=== PATIENT | female | born 1995 | race African-American/Black ===

== ENCOUNTER 2019-03-08 16:30 | Emergency (ER) | payer OTHER ==
[2019-03-08 17:12] LABS: #Eosinphils 0.1 thou/uL (0.0-0.7); #Lymphocytes 2.1 thou/uL (1.20-3.40); #Monocytes 0.8 thou/uL (0.11-0.59); #Neutrophils 7.9 thou/uL (1.40-6.50); %Basophils 0.4 % (0.0-1.0); %Eosinophils 0.7 % (0.0-10.0); %Lymphocytes 19.6 % (21.0-51.0); %Neutrophils 72.3 % (42.0-75.0); Hemoglobin 11.3 g/dL (12.0-16.0); Mean Corpuscular HGB CONC 33.1 g/dL (32.0-36.0); Mean Corpuscular Hemoglobin 27.6 pg (27.0-31.0); Mean Corpuscular Volume 83.5 fL (78.0-98.0); Mean Platelet Volume 6.9 fL (7.4-10.4); Platelet Count 356 thou/uL (130-400); RBC Distribution Width 12.3 % (11.5-14.5); Red Blood Cell (RBC) Count 4.09 mill/uL (4.20-5.40); White Blood Cell (WBC) Count 10.9 thou/uL (4.8-10.8)
[2019-03-08 17:39] LABS: ALT (SGPT) 17 U/L (8-55); AST (SGOT) 15 U/L (5-34); Alkaline Phosphatase 56 U/L (40-150); Anion Gap 13 mmol/L (10-20); BUN (Urea Nitrogen) 9 mg/dL (7.0-18.7); Bilirubin, Total 0.2 mg/dL (0.2-1.2); Calc. Creatinine Clearance 0 mL/min (70-130); Calcium 9.4 mg/dL (7.8-10.44); Carbon Dioxide 23 mmol/L (22-29); Chloride 104 mmol/L (98-107); Estimated GFR-MDRD Greater than 90; Globulin 2.5 g/dL (2.4-3.5); Glucose 80 mg/dL (70-105); Potassium 3.9 mmol/L (3.5-5.1); Protein, Total 6.5 g/dL (6.0-8.3); Sodium 136 mmol/L (136-145)
--- NOTE | 2019-03-08 19:31 | ULT ---
ULTRASOUND OBSTETRICAL COMPLETE: DATE: 03/08/2019 HISTORY: 23-year-old female with early second trimester vaginal bleeding FINDINGS: number: chandler lie: Cephalic Maternal cervix: 4 cm. Closed. Placenta: Posterior. No abruption or previa. Amniotic fluid volume: Subjectively normal heart rate: 157 bpm The following anatomy is visualized, with no evidence of anomalies: Head, stomach, and bladder. Is too early to adequately evaluate the rest of the anatomy. biometry: Biparietal diameter (BPD): 2.9 cm 15 w 2 d Head circumference (HC): 10.9 cm 15 w 2 d Abdominal circumference (AC): 9.1 cm 15 w 2 d Femur length (FL): 1.7 cm 15 w 1 d Average ultrasound age (AUA): 15 w 2 d Estimated date of delivery (KRUNAL): 08/28/2019 IMPRESSION: 1) Live 2nd trimester intrauterine gestation. 2) Estimated gestational age of 15 weeks, 2 days 3) Vertex lie. 4) no evidence of complications
[2019-03-08 20:11] LABS: Bilirubin Negative (Negative); Blood, Urine Negative (Negative); Clarity CLEAR (Clear); Glucose, Urine (Dipstick) Negative (Negative); Leukocyte Negative (Negative); Nitrite Negative (Negative); Protein, Urine (Dipstick) Negative (Neg-Trace); Specific Gravity, Urine 1.024 (1.002-1.036); Urobilinogen 0.2 mg/dL (0.2-1.0); pH, Urine 6.5 (5.0-9.0)
== END 2019-03-08 20:46 | disposition home or self-care (01) ==
LOC: ERS 16:30
DX: O20.9 Hemorrhage in early pregnancy, unspecified (principal); Z3A.14 14 weeks gestation of pregnancy
CPT/HCPCS: 36415; 76815; 80053; 81003; 84702; 85025; 86900; 86901; 87086; 87480; 87510; 87660